=== PATIENT | female | born 1995 | race Caucasian/White ===

== ENCOUNTER 2017-10-05 01:44 | Emergency (ER) | payer OTHER, SELFPAY ==
[2017-10-05 01:45] VITALS: BP 153/87; PULSE 58; RESP 18; TEMP 36.6; O2SAT 100; BMI 25.8
--- NOTE | 2017-10-05 02:15 | ED.DCSUM_ITS ---
- ER Visit Summary Date of Service: 10/05/17 Chief Complaint: Left eyebrow laceration History of Present Illness: The patient is a 22 F significant past medical history. Was in a bathroom somewhat open a door and actually struck her in the left eyebrow. Causing a laceration. She denies any headache. No LOC. She was not knocked to the ground. She is a friend with her verifies the story. She denies any neck pain or other injuries. Her tetanus status is up-to-date within the last couple of years. Physical Examination: Well-appearing young female. Vital signs are stable afebrile. HEENT exam pupils round reactive light motions are intact. Her left upper eyebrow is mildly swollen. Has about a 2-3 cm laceration. There is swelling and bruising at the site. Currently it is not bleeding. It will need to be repaired. No other facial or scalp injuries. C-spine nontender normal range of motion. Lungs clear to auscultation. Heart regular rhythm no murmur. Chest wall nontender. Abdomen soft nontender. Moving all 4 extremities. Nontender no deformity. Neurologically she is awake and alert without focal motor deficits. Test Results: None Emergency Department Course and Treatment: Left eyebrow laceration which will need repair. Let will be applied to the wound. Cleaned and explored. Locally anesthetized. Closed using # 4 6-0 simple interrupted sutures. Treatment Plan: Wound care. Suture removal in 5 days. Ice to the area. Tylenol Motrin for pain. Disposition: Discharge Impression: Acute left eyebrow laceration of 2.5 cm with ER repair This note was generated with [employer] dictation software. It may contain incorrect words, spelling, and punctuation that were not noted in review of the chart prior to signing ED Disposition - Plan for ED Patient: Disposition: Home or Assisted Living Chief Complaint: Laceration Instructions: ED Laceration Facial Sutr Tape Referrals: Noe Angeles MD [STAFF PHYSICIAN] - 5 Days for suture removal Additional Instructions: Keep the left eyebrow clean. Ice to the area to decrease swelling. Tylenol Motrin for pain Suture removal in 5 days.
[2017-10-05] MEDS: Lidocaine/Epi/Tetracaine 50 ML 1 APPLIC TOPICAL (02:16)
--- NOTE | 2017-10-05 02:19 | ED.DEP ---
ED Disposition - Plan for ED Patient: Disposition: Home or Assisted Living Chief Complaint: Laceration Instructions: ED Laceration Facial Sutr Tape Referrals: Noe Angeles MD [STAFF PHYSICIAN] - 5 Days for suture removal Additional Instructions: Keep the left eyebrow clean. Ice to the area to decrease swelling. Tylenol Motrin for pain Suture removal in 5 days.
[2017-10-05 03:26] VITALS: BP 138/74; PULSE 60; RESP 16; O2SAT 98
== END 2017-10-05 03:30 | disposition home or self-care (01) ==
PROVIDERS: Emergency Provider Emergency Medicine
DX: S01.112A Laceration without foreign body of left eyelid and periocular area, initial encounter (principal); W22.8XXA Striking against or struck by other objects, initial encounter; Y93.9 Activity, unspecified; Y92.9 Unspecified place or not applicable; Y99.9 Unspecified external cause status
CPT/HCPCS: 12011; 99283